=== PATIENT | male | born 1975 | race Caucasian/White ===

== ENCOUNTER 2016-09-30 05:30 | Emergency (ER) | payer BC ==
[2016-09-30 05:37] VITALS: BMI 25.8
[2016-09-30] MEDS ORDERED: ACETAMINOPHEN 325 MG TABLET (FP) ONE (05:37)
[2016-09-30] MEDS ORDERED: ALBUTEROL SO4 2.5/IPRATROPIUM 0.5 INH SOL 3 ML VIAL.NEB. NEB ONE (05:38)
[2016-09-30] MEDS ORDERED: PSEUDOEPHEDRINE HCL 30 MG TABLET PO STA (05:58)
[2016-09-30] MEDS ORDERED: AMOX TR/POT CLAV 875MG/125MG TABLETS (FP) PO STA (05:58)
[2016-09-30] MEDS ORDERED: PSEUDOEPHEDRINE HCL 60 MG TABLET ONE (05:58)
--- NOTE | 2016-09-30 06:00 | PDOC ---
History of Present Illness - General History Source: Patient Exam Limitations: No Limitations - History of Present Illness Initial Comments: 09/30/16 06:02 Patient is a 41 year old male with a significant past medical history of asthma who presents to the ED with cough and nasal congestion. Patient notes that for a week time he had aches and pains, sore throat, cough, generalized malaise. He notes that the cough is occasionally productive but not completely. He states that his pump provides him with minimal relief. He denies sick contact. <Madison Gibson - Last Filed: 09/30/16 06:07> - General History Source: Patient <Jose Johnson - Last Filed: 09/30/16 19:51> - General Chief Complaint: Respiratory Stated Complaint: COUGHING,PAIN Time Seen by Provider: 09/30/16 05:58 Past History <Madison Gibson - Last Filed: 09/30/16 06:07> - Past Medical History Asthma: Yes (childhood) HTN: Yes (no medication) - Immunization History Immunization Up to Date: Yes - Psycho/Social/Smoking Cessation Hx Anxiety: No Suicidal Ideation: No Smoking History: Never smoked Have you smoked in the past 12 months: No If you are a former smoker, when did you quit?: 10yrs ago Information on smoking cessation initiated: No Hx Alcohol Use: No Drug/Substance Use Hx: No Substance Use Type: None Hx Substance Use Treatment: No <Jose Johnson - Last Filed: 09/30/16 19:51> - Past Medical History Allergies/Adverse Reactions: Allergies Allergy/AdvReac Type Severity Reaction Status Date / Time No Known Allergies Allergy Verified 09/30/16 05:32 Home Medications: Ambulatory Orders Albuterol Sulfate Inhaler - [Ventolin Hfa Inhaler -] 1 - 2 inh PO Q4H PRN Amox-Tr/K Cl [Augmentin - 875Mg Tablet] 1 tab PO BID #20 tablet 09/30/16 Review of Systems - Review of Systems Able to Perform ROS?: Yes Comments:: 09/30/16 06:02 CONSTITUTIONAL: Absent: fever, no chills, no fatigue EYES: Absent: visual changes ENT: Present: nasal congestion Absent: ear pain, no sore throat CARDIOVASCULAR: Absent: chest pain, no palpitations RESPIRATORY: Present: cough Absent: no SOB GI: Absent: abdominal pain, no nausea, no vomiting, no constipation, no diarrhea GENITOURINARY: Absent: dysuria, no frequency, no hematuria MUSCULOSKELETAL: Absent: back pain, no arthralgia, no myalgia SKIN: Absent: rash <Madison Gibson - Last Filed: 09/30/16 06:07> *Physical Exam - Vital Signs Last Vital Signs Temp Pulse Resp BP Pulse Ox 101.8 F H 110 H 18 142/87 94 L 09/30/16 05:32 09/30/16 05:32 09/30/16 05:32 09/30/16 05:32 09/30/16 05:32 - Physical Exam Comments: 09/30/16 06:02 GENERAL: Well-appearing, well-nourished. No apparent distress. HEENT: +nasal congestion, +oropharynx clean no erythema no exudates. Normocephalic, atraumatic. PERRL, EOM intact. CARDIOVASCULAR: 4 +Tachycardic. Normal S1, S2. No murmurs, rubs, or gallops. Distal pulses are 2+ and symmetric. PULMONARY: Clear to auscultation bilaterally. No wheezing, rales or rhonchi. ABDOMEN: Soft, non-distended, non-tender. EXTREMITIES: Normal ROM in all four extremities. No gross deformities. SKIN: Warm, dry. No rash NEUROLOGICAL: No focal neurological deficits. <Madison Gibson - Last Filed: 09/30/16 06:07> - Vital Signs Last Vital Signs Temp Pulse Resp BP Pulse Ox 101.8 F H 110 H 18 142/87 94 L 09/30/16 05:32 09/30/16 05:32 09/30/16 05:32 09/30/16 05:32 09/30/16 05:32 <Jose Johnson - Last Filed: 09/30/16 19:51> ED Treatment Course - Medications Given in the ED: ED Medications Discontinued Medications Generic Name Dose Route Start Last Admin Trade Name Freq PRN Reason Stop Dose Admin Pseudoephedrine HCl 60 mg 09/30/16 05:58 09/30/16 06:01 Sudafed - PO 09/30/16 05:59 60 mg Q4H STA Administration <Madison Gibson - Last Filed: 09/30/16 06:07> - LABORATORY CBC & Chemistry Diagram: 09/30/16 07:20 09/30/16 06:41 <Jose Johnson - Last Filed: 09/30/16 19:51> Medical Decision Making - Medical Decision Making 09/30/16 19:49 Dr. Johnson: The scribe's documentation has been prepared under my direction and personally reviewed by me in its entirery. I confirm that the note above accurately reflects all work, treatment, procedures, and medical decision making performed by me. Patient found to have a maxillary sinusitis, and influenza A. Patient treated and released <Jose Johnson - Last Filed: 09/30/16 19:51> *DC/Admit/Observation/Transfer - Attestations Scribe Attestion: 09/30/16 06:04 Documentation prepared by DEAN Saba, acting as biomedical instrument technician for Jose Johnson DO. <Madison Gibson - Last Filed: 09/30/16 06:07> - Discharge Dispostion Admit: No <Jsoe Johnson - Last Filed: 09/30/16 19:51> Diagnosis at time of Disposition: Influenza A, Maxillary sinusitis, acute - Discharge Dispostion Disposition: HOME Condition at time of disposition: Improved - Prescriptions Prescriptions: Amox-Tr/K Cl [Augmentin - 875Mg Tablet] 1 tab PO BID #20 tablet - Referrals Referrals: Tavo Valentin MD [Primary Care Provider] - Call tomorrow - Patient Instructions Printed Discharge Instructions: Sinusitis, Influenza, DI for Sinusitis Additional Instructions: Rest, Tylenol or Motrin for discomfort, increase fluid intake For the fsjxlolml-Rzwecbipj-dvm pill twice a day-you received your first dose this morning Followup with your primary care physician in 24-48 hours Return immediately if you worsen in any way Take your medications as directed Take a yogurt or probiotic pill daily to prevent antibiotic associated diarrhea - Post Discharge Activity Work/School Note: Back to Work, Parent(s) Back to Work Note
[2016-09-30] MEDS ORDERED: SODIUM CHLORIDE 1,000 ML IV STA (06:41)
[2016-09-30] MEDS ORDERED: IBUPROFEN 800 MG/8 ML IJ IVPB ONE (06:42)
[2016-09-30 07:42] LABS: BASOPHIL 0.4 % (0-2.0); EOSINOPHIL 1.9 % (0-4.5); MCH 29.7 pg (25.7-33.7); MCHC 34.3 g/dl (32.0-35.9); MEAN CELL VOLUME 86.4 fl (80-96); MEAN PLT VOLUME 9.3 fl (7.5-11.1); NEUTROPHILS 74.2 % (42.8-82.8); PLATELET COUNT 199 K/MM3 (134-434); RDW 11.9 % (11.9-15.9); WHITE BLOOD COUNT 6.7 K/mm3 (4.0-10.0)
--- NOTE | 2016-09-30 07:49 | PDOC ---
*Physical Exam - Vital Signs Last Vital Signs Temp Pulse Resp BP Pulse Ox 102.6 F H 110 H 18 142/87 94 L 09/30/16 06:40 09/30/16 05:32 09/30/16 05:32 09/30/16 05:32 09/30/16 05:32 - Physical Exam Comments: 09/30/16 07:48 SIGN IN Sign-out received from outgoing Emergency Physician Pt interviewed and examined Ancillary studies reviewed Patient is a 41 year old male with a significant past medical history of asthma who presents to the ED with cough and nasal congestion. Patient notes that for a week time he had aches and pains, sore throat, cough, generalized malaise. He notes that the cough is occasionally productive but not completely. He states that his pump provides him with minimal relief. He denies sick contact. After Augmentin, Sudafed,, Tylenol, and neb, patient's temperature went from 101 -102.6 At this point, he was put in for a chest x-ray, labwork, and flu swab, and reevaluation 09/30/16 08:28 Laboratory Results - last 24 hr 09/30/16 09/30/16 09/30/16 06:41 07:20 07:20 WBC 6.7 RBC 4.76 Hgb 14.1 D Hct 41.2 MCV 86.4 MCHC 34.3 RDW 11.9 Plt Count 199 D MPV 9.3 Neutrophils % 74.2 Lymphocytes % 11.3 D Monocytes % 12.2 H Eosinophils % 1.9 Basophils % 0.4 INR 1.32 H Sodium 138 Potassium 4.2 Chloride 102 Carbon Dioxide 28 Anion Gap 8 BUN 14 Creatinine 0.9 D Creat Clearance w eGFR > 60 Random Glucose 141 H D Calcium 8.6 Total Bilirubin 0.4 AST 32 ALT 50 Alkaline Phosphatase 93 Total Protein 7.3 Albumin 3.9 Chest x-ray PA and lateral-NAD CT scan of the head without-there is fluid layering in both maxillary sinuses consistent with acute maxillary sinusitis No acute changes in the brain are seen Pansinusitis is not seen 09/30/16 09:00 To my exam Patient is alert, and feeling better after meds There is some tenderness in the maxillary sinuses bilaterally Influenza A positive Patient has been symptomatic for almost a week, too late for Tamiflu Impression-influenza A, acute maxillary sinusitis 09/30/16 10:05 Vital Signs - 24 hr 09/30/16 09/30/16 09/30/16 05:32 06:40 09:30 Temperature 101.8 F H 102.6 F H 98.5 F Pulse Rate 110 H Pulse Rate [ 85 Right] Respiratory 18 18 Rate Blood Pressure 142/87 Blood Pressure 122/73 [Right Arm] O2 Sat by Pulse 94 L 96 Oximetry (%) Repeat vital signs improved Will discharge with Augmentin-patient had his first dose here Impression-influenza A, acute maxillary sinusitis ED Treatment Course - LABORATORY CBC & Chemistry Diagram: 09/30/16 07:20 09/30/16 06:41 - ADDITIONAL ORDERS Additional order review: 09/30/16 07:20 RBC 4.76 MCV 86.4 MCHC 34.3 RDW 11.9 MPV 9.3 Neutrophils % 74.2 Lymphocytes % 11.3 D Monocytes % 12.2 H Eosinophils % 1.9 Basophils % 0.4 - Medications Given in the ED: ED Medications Discontinued Medications Generic Name Dose Route Start Last Admin Trade Name Cl PRN Reason Stop Dose Admin Amoxicillin/Clavulanate Potassium 1 tab 09/30/16 05:58 09/30/16 06:06 Augmentin - 875mg Tablet PO 09/30/16 05:59 1 tab ONCE STA Administration Sodium Chloride 1,000 mls @ 1,000 mls/hr 09/30/16 06:41 09/30/16 07:21 Normal Saline - IV 09/30/16 07:40 1,000 mls/hr ASDIR STA Administration Pseudoephedrine HCl 60 mg 09/30/16 05:58 09/30/16 06:01 Sudafed - PO 09/30/16 05:59 60 mg Q4H STA Administration *DC/Admit/Observation/Transfer Diagnosis at time of Disposition: Influenza A, Maxillary sinusitis, acute - Discharge Dispostion Disposition: HOME Condition at time of disposition: Improved - Prescriptions Prescriptions: Amox-Tr/K Cl [Augmentin - 875Mg Tablet] 1 tab PO BID #20 tablet - Referrals Referrals: Tavo Valentin MD [Primary Care Provider] - Call tomorrow - Patient Instructions Printed Discharge Instructions: Influenza, Sinusitis, DI for Sinusitis Additional Instructions: Rest, Tylenol or Motrin for discomfort, increase fluid intake For the eiveyljst-Vsyxiefdr-ydx pill twice a day-you received your first dose this morning Followup with your primary care physician in 24-48 hours Return immediately if you worsen in any way Take your medications as directed Take a yogurt or probiotic pill daily to prevent antibiotic associated diarrhea - Post Discharge Activity Work/School Note: Back to Work, Parent(s) Back to Work Note
[2016-09-30 08:00] LABS: INR 1.32 (0.82-1.09); PROTHROMBIN TIME (PATIENT) 14.6 SEC (9.98-11.88)
[2016-09-30 08:14] LABS: ALBUMIN 3.9 g/dl (3.4-5.0); ALK PHOS 93 U/L (45-117); ANION GAP 8 (8-16); BILIRUBIN,TOTAL 0.4 mg/dL (0.2-1.0); CALCIUM 8.6 mg/dL (8.5-10.1); CO2 28 mmol/L (21-32); CREATININE 0.9 mg/dL (0.7-1.3); GLUCOSE,RANDOM 141 mg/dL (74-106); SGOT/AST 32 U/L (15-37); SGPT/ALT 50 U/L (12-78); TOT PROT 7.3 g/dl (6.4-8.2)
[2016-09-30 10:03] VITALS: BP 122/73; PULSE 85; TEMP 98.5
== END 2016-09-30 10:15 | disposition home or self-care (01) ==
LOC: JER 05:30
PROC: 3E033NZ Introduction of Analgesics, Hypnotics, Sedatives into Peripheral Vein, Percutaneous Approach (ICD-10-PCS; principal; 2016-09-30)
DX: J09.X2 Influenza due to identified novel influenza A virus with other respiratory manifestations (principal); J01.00 Acute maxillary sinusitis, unspecified
CPT/HCPCS: 36415; 70450-TC; 71020-TC; 80053; 85025; 85610; 87040; 87804; 99282-25

== ENCOUNTER 2019-01-22 12:01 | Emergency (ER) | payer OTHER, BC ==
[2019-01-22 12:07] VITALS: BP 150/90; PULSE 99; TEMP 98.3; BMI 28.5
--- NOTE | 2019-01-22 12:14 | PDOC ---
History of Present Illness - General Chief Complaint: Injury Stated Complaint: WORK INJURY Time Seen by Provider: 01/22/19 12:09 History Source: Patient Exam Limitations: Clinical Condition - History of Present Illness Initial Comments: 01/22/19 13:12 Patient with no significant past medical history present with complaint of pain to dorsal of right distal foot status post dropping a bag of ice on right foot while at work over an hour ago. Patient reported increased pain to right foot with ambulation. Patient reported mild numbness sensation to right distal foot. Denies any ankle or leg pain or swelling. Timing/Duration: 1-3 hours Past History - Past Medical History Allergies/Adverse Reactions: Allergies Allergy/AdvReac Type Severity Reaction Status Date / Time No Known Allergies Allergy Verified 01/22/19 12:08 Home Medications: Ambulatory Orders Ibuprofen 800 mg PO Q8H PRN #20 tablet 01/22/19 Asthma: Yes (childhood) COPD: No HTN: Yes (no medication) - Immunization History Immunization Up to Date: Yes - Suicide/Smoking/Psychosocial Hx Smoking History: Never smoked Have you smoked in the past 12 months: No If you are a former smoker, when did you quit?: 10yrs ago Hx Alcohol Use: No Drug/Substance Use Hx: No Substance Use Type: None Hx Substance Use Treatment: No Review of Systems - Review of Systems Able to Perform ROS?: Yes Is the patient limited Nigerian proficient: No Constitutional: No: Malaise, Weakness HEENTM: No: Symptoms Reported Respiratory: No: Symptoms reported Cardiac (ROS): No: Symptoms Reported Musculoskeletal: Yes: Symptoms Reported, See HPI, Joint Swelling (right foot), Muscle Pain (dorsum of right foot). No: Muscle Weakness Neurological: Yes: Numbness (right foot). No: Tingling All Other Systems: Reviewed and Negative *Physical Exam - Vital Signs Last Vital Signs Temp Pulse Resp BP Pulse Ox 98.3 F 99 H 18 150/90 98 01/22/19 12:06 01/22/19 12:06 01/22/19 12:06 01/22/19 12:01/22/19 12:06 - Physical Exam Comments: 01/22/19 12:13 GENERAL: Well developed, well nourished. Awake and alert in mild acute distress. CARDIOVASCULAR: Regular rate and rhythm. No murmurs, rubs, or gallops. PULMONARY: No evidence of respiratory distress. MUSCULOSKELETAL : mild tenderness over the dorsum of right foot for midfoot to distal aspect of right foot. No visible swelling or deformity to foot. No tenderness to ankle or right leg. EXTREMITIES: No cyanosis. No clubbing. No edema. No calf tenderness. SKIN: Warm and dry. Normal capillary refill. No bruising or ecchymosis NEUROLOGICAL: Alert, awake, appropriate. No motor deficits in the lower extremities. Gait is normal with mild limp on right foot due to pain PSYCHIATRIC: Cooperative. Good eye contact. Appropriate mood and affect. General Appearance: Yes: Nourished, Appropriately Dressed, Moderate Distress ED Treatment Course - RADIOLOGY Radiology Studies Ordered: Category Date Time Status FOOT-RIGHT [RAD] Stat Radiology 01/22/19 12:10 Ordered Medical Decision Making - Medical Decision Making 01/22/19 13:13 Patient with no significant past medical history present with complaint of pain to dorsal of right distal foot status post dropping a bag of ice on right foot while at work over an hour ago. Patient reported increased pain to right foot with ambulation. Patient reported mild numbness sensation to right distal foot. Denies any ankle or leg pain or swelling. Exam significant for moderate tenderness to dorsal of right foot from midfoot to distal foot and phalanges. No swelling to foot or ankle. No visible deformity to foot. No tenderness to ankle right leg. Symptoms likely foot contusion. X-ray of right foot shows no acute fracture or pathology. Toradol 10 mg IM ordered for pain. Patient be discharged home with postop boots and crutches to help keep weight of right foot for the next 24 hours. Right foot wrapped with Rhett bandage. Patient is stable for discharge *DC/Admit/Observation/Transfer Diagnosis at time of Disposition: Right foot pain, Contusion of right foot, initial encounter - Discharge Dispostion Condition at time of disposition: Stable Decision to Admit order: No - Prescriptions Prescriptions: Ibuprofen 800 mg PO Q8H PRN #20 tablet PRN Reason: pain - Referrals Referrals: Tavo Valentin MD [Primary Care Provider] - - Patient Instructions Printed Discharge Instructions: Contusion Additional Instructions: Your x-ray shows no acute fracture or dislocation. The symptoms likely foot contusion. Take prescribed medication as needed for pain. Apply cold compresses to foot and switch to warm compresses tomorrow as needed for swelling and pain. Use provided crutches to keep weight off right foot for the next 24 hours. Ambulate as tolerated after 24 hours. - Post Discharge Activity Forms/Work/School Notes: Back to Work
[2019-01-22] MEDS ORDERED: KETOROLAC TROMETHAMINE 30 MG/1 ML VIAL IM ONE (13:06)
[2019-01-22] MEDS ORDERED: KETOROLAC TROMETHAMINE 30 MG/1 ML VIAL ONE (13:17)
== END 2019-01-22 13:26 | disposition home or self-care (01) ==
LOC: JERFT 12:01
PROC: 3E0233Z Introduction of Anti-inflammatory into Muscle, Percutaneous Approach (ICD-10-PCS; principal; 2019-01-22)
DX: S90.31XA Contusion of right foot, initial encounter (principal); W22.8XXA Striking against or struck by other objects, initial encounter; Y93.89 Activity, other specified; Y92.512 Supermarket, store or market as the place of occurrence of the external cause; Y99.0 Civilian activity done for income or pay
CPT/HCPCS: 73630-TC-RT-FY; 99281-25

== ENCOUNTER 2020-05-16 03:29 | Emergency (ER) | payer BC ==
[2020-05-16 03:56] VITALS: BP 132/93; PULSE 75; TEMP 98.3; BMI 27.1
--- NOTE | 2020-05-16 03:56 | PDOC ---
Medical Decision Making - Medical Decision Making 05/16/20 03:56 Patient seen by the advanced practice provider under my supervision. Ancillary testing reviewed as necessary. I agree with plan as outlined by the advanced practice provider. Discharge - Discharge Information Problems reviewed: Yes Clinical Impression/Diagnosis: Trapezius muscle strain Qualifiers: Encounter type: initial encounter Laterality: left Qualified Code(s): S46.812A - Strain of other muscles, fascia and tendons at shoulder and upper arm level, left arm, initial encounter Condition: Fair Disposition: HOME - Additional Discharge Information Prescriptions: Cyclobenzaprine HCl [Flexeril -] 10 mg PO TID PRN #14 tablet PRN Reason: Muscle Spasms Ibuprofen 600 mg PO QID PRN #20 tablet PRN Reason: Pain - Follow up/Referral Referrals: Keesha Meadows MD [Primary Care Provider] - - Patient Discharge Instructions Patient Printed Discharge Instructions: Muscle Strain Additional Instructions: Do light stretches Apply ice to the area for the first 24 hours. Then alternate with ice and heat after. Take ibuprofen every 6 hours as needed for pain. Take Flexeril as prescribed for muscle spasm. Flexeril can make you sleepy, do not drive or operate heavy machinery after taking the medication. Follow-up with an orthopedic doctor if symptoms persist. A referral was given to you today. Return to the emergency room for any worsening symptoms. - Post Discharge Activity Work/Back to School Note: Back to Work
--- OUTSIDE RECORDS SUMMARY | 2020-05-16 03:56 | XMS ---
:1975 Author Organization [facility] Support Name Relationship Address Phone [employer] [place] [address] ROSIE KIRAN [address] [place] [address] Re-disclosure Warning The records that you are about to access may contain information from federally- assisted alcohol or drug abuse programs. If such information is present, then the following federally mandated warning applies: This information has been disclosed to you from records protected by federal confidentiality rules (42 CFR part 2). The federal rules prohibit you from making any further disclosure of this information unless further disclosure is expressly permitted by the written consent of the person to whom it pertains or as otherwise permitted by 42 CFR part 2. A general authorization for the release of medical or other information is NOT sufficient for this purpose. The Federal rules restrict any use of the information to criminally investigate or prosecute any alcohol or drug abuse patient.The records that you are about to access may contain highly sensitive health information, the redisclosure of which is protected by Article 27-F of the [facility] Public Health law. If you continue you may haveaccess to information: Regarding HIV / AIDS; Provided by facilities licensed or operated by the [facility] Office of Mental Health; or Provided by the [facility] Office for People With Developmental Disabilities. If such information is present, then the following [facility] mandated warning applies: This information has been disclosed to you from confidential records which are protected by state law. State law prohibits you from making any further disclosure of this information without the specific written consent of the person to whom it pertains, or as otherwise permitted by law. Any unauthorized further disclosure in violation of state law may result in a fine or mcc sentence or both. A general authorization for the release of medical or other information is NOT sufficient authorization for further disclosure. Insurance Providers Payer name Policy type Policy ID Covered Covered libertarian's Policy P nilson / Coverage libertarian ID relationship to [employer] Inf ormation type figueredo BC OUT OF [id number] [facility] SELF PAY INSURANCE BC OUT OF [id number] STATE PENDING WC/NF [id number] ONLY
[2020-05-16] MEDS ORDERED: diazePAM 5 MG TABLET PO ONE (04:17)
[2020-05-16] MEDS ORDERED: KETOROLAC TROMETHAMINE 30 MG/1 ML VIAL IM ONE (04:17)
--- NOTE | 2020-05-16 04:17 | PDOC ---
History of Present Illness - General Chief Complaint: Head/Neck problem Stated Complaint: NECK PAIN Time Seen by Provider: 05/16/20 03:51 History Source: Patient - History of Present Illness Initial Comments: 05/16/20 04:32 45-year-old male complaining of left-sided neck and shoulder pain for the last 3 days. Patient reports pain is worse with movement. Patient took doses of Tylenol with no significant improvement. 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 Denies trauma to the area denies chest pain, nausea, vomiting, diaphoresis Past History - Medical History Allergies/Adverse Reactions: Allergies Allergy/AdvReac Type Severity Reaction Status Date / Time No Known Allergies Allergy Verified 05/16/20 03:56 Home Medications: Ambulatory Orders Ibuprofen 800 mg PO Q8H PRN #20 tablet 01/22/19 Cyclobenzaprine HCl [Flexeril -] 10 mg PO TID PRN #14 tablet 05/16/20 Ibuprofen 600 mg PO QID PRN #20 tablet 05/16/20 Asthma: Yes (childhood) COPD: No HTN: Yes (no medication) - Immunization History Immunization Up to Date: Yes - Psycho-Social/Smoking History Smoking History: Never smoked Have you smoked in the past 12 months: No If you are a former smoker, when did you quit?: 10yrs ago Information on smoking cessation initiated: No - Substance Abuse Hx (Audit-C & DAST Scrn) How often the patient has a drink containing alcohol: Monthly or less Number of drinks the patient has on a typical day: 1 or 2 How often the patient has six or more drinks on one occasion: Never Score: In Men: 4 or > Positive; In Women: 3 or > Positive: 1 Screen Result (Pos requires Nsg. Audit-10AR): Negative In the last yr the pt used illegal drug/Rx for NonMed reason: No Score: Yes response is considered Positive: 0 Screen Result (Positive result requires Nsg. DAST-10): Negative *Physical Exam - Vital Signs Last Vital Signs Temp Pulse Resp BP Pulse Ox 98.3 F 75 18 132/93 98 05/16/20 03:40 05/16/20 03:40 05/16/20 03:40 05/16/20 03:40 05/16/20 03:40 - Physical Exam General Appearance: Yes: Appropriately Dressed Neck: positive: Tender lateral ( trap muscle spasm), Other Respiratory/Chest: positive: Lungs Clear, Normal Breath Sounds Cardiovascular: positive: Regular Rhythm, Regular Rate Musculoskeletal: positive: Decreased Range of Motion, Muscle Spasm. negative: Vertebral Tenderness Extremity: positive: Normal Capillary Refill, Normal Inspection, Normal Range of Motion Integumentary: positive: Normal Color, Dry, Warm Neurologic: positive: Fully Oriented, Alert, Normal Mood/Affect Heart Score/ECG Review - ECG Intrepretation Rhythm: Regular Rhythm Comment:: 05/16/20 04:35 NSR Medical Decision Making - Medical Decision Making Trapezius muscle strain P: valium toradol 05/16/20 05:25 patient is feeling better will d/c home 05/16/20 06:16 Discharge - Discharge Information Problems reviewed: Yes Clinical Impression/Diagnosis: Trapezius muscle strain Qualifiers: Encounter type: initial encounter Laterality: left Qualified Code(s): S46.812A - Strain of other muscles, fascia and tendons at shoulder and upper arm level, left arm, initial encounter Condition: Fair Disposition: HOME - Additional Discharge Information Prescriptions: Cyclobenzaprine HCl [Flexeril -] 10 mg PO TID PRN #14 tablet PRN Reason: Muscle Spasms Ibuprofen 600 mg PO QID PRN #20 tablet PRN Reason: Pain - Follow up/Referral Referrals: Keesha Meadows MD [Primary Care Provider] - - Patient Discharge Instructions Patient Printed Discharge Instructions: Muscle Strain Additional Instructions: Do light stretches Apply ice to the area for the first 24 hours. Then alternate with ice and heat after. Take ibuprofen every 6 hours as needed for pain. Take Flexeril as prescribed for muscle spasm. Flexeril can make you sleepy, do not drive or operate heavy machinery after taking the medication. Follow-up with an orthopedic doctor if symptoms persist. A referral was given to you today. Return to the emergency room for any worsening symptoms. - Post Discharge Activity Work/Back to School Note: Back to Work
[2020-05-16] MEDS ORDERED: diazePAM 5 MG TABLET ONE (04:25)
[2020-05-16] MEDS ORDERED: KETOROLAC TROMETHAMINE 30 MG/1 ML VIAL ONE (04:26)
--- NOTE | 2020-05-16 12:50 | EKG ---
Test Reason : Blood Pressure : / mmHG Vent. Rate : 077 BPM Atrial Rate : 077 BPM P-R Int : 142 ms QRS Dur : 094 ms QT Int : 394 ms P-R-T Axes : 055 079 070 degrees QTc Int : 445 ms NORMAL SINUS RHYTHM POSTERIOR INFARCT ABNORMAL ECG Confirmed by MD SUMMER, HUGO ([id number]) on 05/16/2020 12:49:54 PM Referred By: Confirmed By:HUGO WHEELER MD
== END 2020-05-16 06:00 | disposition home or self-care (01) ==
LOC: JER 03:29
PROC: 3E0234Z Introduction of Serum, Toxoid and Vaccine into Muscle, Percutaneous Approach (ICD-10-PCS; principal; 2020-05-16)
DX: S46.812A Strain of other muscles, fascia and tendons at shoulder and upper arm level, left arm, initial encounter (principal)
CPT/HCPCS: 93005; 93010; 99284-25

== ENCOUNTER 2022-10-05 03:36 | Emergency (ER) | payer SELFPAY ==
[2022-10-05 03:49] VITALS: BP 135/86; PULSE 81; RESP 17; TEMP 97.6; BMI 24.4
== END 2022-10-05 05:49 | disposition home or self-care (01) ==
LOC: JER 03:36
DX: F32.A Depression, unspecified (principal); R53.83 Other fatigue
CPT/HCPCS: 82962; 99283-25

== ENCOUNTER 2023-06-12 07:58 | Emergency (ER) | payer BC ==
[2023-06-12 08:36] VITALS: BP 125/82; PULSE 70; RESP 18; TEMP 97.9; BMI 26.4
[2023-06-12] MEDS ORDERED: ACETAMINOPHEN 500 MG TABLET (FP) PO ONE (08:45)
[2023-06-12] MEDS ORDERED: KETOROLAC TROMETHAMINE 30 MG/1 ML VIAL IM ONE (08:45)
[2023-06-12] MEDS ORDERED: LIDOCAINE 5% TOPICAL PATCH TP ONE (08:46)
[2023-06-12] MEDS ORDERED: ACETAMINOPHEN 325 MG TABLET (FP) ONE (09:02)
[2023-06-12] MEDS ORDERED: LIDOCAINE 4% PATCH TP ONE (09:02)
[2023-06-12] MEDS ORDERED: KETOROLAC TROMETHAMINE 30 MG/1 ML VIAL ONE (09:02)
[2023-06-12] MEDS ORDERED: LIDOCAINE PATCH REMOVAL MC ONE (22:00)
== END 2023-06-12 09:10 | disposition home or self-care (01) ==
LOC: JER 07:58
PROC: 3E0233Z Introduction of Anti-inflammatory into Muscle, Percutaneous Approach (ICD-10-PCS; principal; 2023-06-12)
DX: M54.2 Cervicalgia (principal); R51.9 Headache, unspecified; M54.6 Pain in thoracic spine
CPT/HCPCS: 99284-25

== ENCOUNTER 2023-11-02 10:25 | Observation (INO) | payer BC ==
[2023-11-02 10:43] VITALS: BMI 26.7
[2023-11-02 11:36] LABS: EOS % 3.6 % (0-4.5); HEMATOCRIT 46.1 % (35.4-49); HEMOGLOBIN 15.5 GM/dL (11.7-16.9); MCHC 33.7 g/dl (32.0-35.9); MEAN CELL VOLUME 86.2 fl (80-96); MEAN PLT VOLUME 9.5 fl (7.5-11.1); MONO % 10.8 % (3.8-10.2); NEUT % 55.6 % (42.8-82.8); PLATELET COUNT 281 10^3/uL (134-434); RBC 5.35 M/mm3 (4.00-5.60); RDW 12.8 % (11.9-15.9); WHITE BLOOD COUNT 5.9 K/mm3 (4.0-10.0)
[2023-11-02 11:42] LABS: INR 1.11 (0.83-1.09); PROTHROMBIN TIME (PATIENT) 12.9 SEC (9.7-13.0)
[2023-11-02 11:45] LABS: ACTIVATED PTT 30.1 SECONDS (25.2-36.5)
[2023-11-02 11:58] LABS: POTASSIUM 4.6 mmol/L (3.5-5.1)
[2023-11-02 12:00] LABS: CALCIUM 9.4 mg/dL (8.5-10.1)
[2023-11-02 12:01] LABS: ALBUMIN 4.1 g/dl (3.4-5.0); BLOOD UREA NITROGEN 17.6 mg/dL (7-18); MAGNESIUM 2.2 mg/dL (1.8-2.4)
[2023-11-02 12:04] LABS: CREATININE 0.9 mg/dL (0.55-1.3)
[2023-11-02 12:06] LABS: BILIRUBIN,TOTAL 0.5 mg/dL (0.2-1); TOT PROT 7.6 g/dl (6.4-8.2)
[2023-11-02 16:16] LABS: CHOLESTEROL 152 mg/dL (50-200)
[2023-11-02 16:17] LABS: LDL CHOLESTEROL (ONLY SJRH) 96 mg/dL (5-100)
[2023-11-02 16:19] LABS: HDL CHOLESTEROL 42 mg/dL (40-60)
[2023-11-02] MEDS: CARVEDILOL 3.125 MG TABLET (FP) PO SCH (22:30)
[2023-11-02] MEDS: APIXABAN 5 MG TABLET PO SCH (22:30)
[2023-11-03 07:45] LABS: POTASSIUM 3.9 mmol/L (3.5-5.1)
[2023-11-03 07:50] LABS: BASO % 0.9 % (0-2.0); EOS % 4.5 % (0-4.5); HEMOGLOBIN 14.9 GM/dL (11.7-16.9); LYMPH % 24.5 % (8-40); MCH 29.5 pg (25.7-33.7); MCHC 34.5 g/dl (32.0-35.9); MEAN CELL VOLUME 85.4 fl (80-96); MEAN PLT VOLUME 9.6 fl (7.5-11.1); NEUT % 59.1 % (42.8-82.8); PLATELET COUNT 245 10^3/uL (134-434); RBC 5.04 M/mm3 (4.00-5.60); RDW 12.7 % (11.9-15.9); WHITE BLOOD COUNT 6.1 K/mm3 (4.0-10.0)
[2023-11-03 07:55] LABS: ALBUMIN 3.7 g/dl (3.4-5.0); CALCIUM 8.6 mg/dL (8.5-10.1)
[2023-11-03 07:56] LABS: BLOOD UREA NITROGEN 20.5 mg/dL (7-18); MAGNESIUM 2.4 mg/dL (1.8-2.4)
[2023-11-03 07:59] LABS: CREATININE 0.7 mg/dL (0.55-1.3)
[2023-11-03 08:00] LABS: BILIRUBIN,TOTAL 0.8 mg/dL (0.2-1); TOT PROT 6.8 g/dl (6.4-8.2)
[2023-11-03] MEDS ORDERED: REGADENOSON 0.4 MG/5 ML PRE-FILLED SYRINGE IVPUSH ONE (09:50)
[2023-11-03] MEDS ORDERED: ASPIRIN 81 MG CHEWABLE TABLETS PO SCH (10:00)
[2023-11-03] MEDS: REGADENOSON 0.4 MG/5 ML PRE-FILLED SYRINGE IVPUSH ONE (12:00)
[2023-11-03 14:37] VITALS: RESP 18
[2023-11-03 15:25] VITALS: BP 123/87; PULSE 72; TEMP 97.7
== END 2023-11-03 19:43 | disposition home or self-care (01) ==
LOC: JER 10:25 → JERBED 12:23 → J4S 21:43
PROVIDERS: ADMIT Family Medicine; ATTEND Family Medicine
PROC: 3E033GC Introduction of Other Therapeutic Substance into Peripheral Vein, Percutaneous Approach (ICD-10-PCS; principal; 2023-11-02)
DX: I48.91 Unspecified atrial fibrillation (principal); I10 Essential (primary) hypertension; F32.A Depression, unspecified; Z87.891 Personal history of nicotine dependence
CPT/HCPCS: 36415; 71046-TC-FY; 78452-TC; 80053; 80061; 83735; 84443; 84484; 85025; 85610; 85730; 93005; 93010; 93017; 93306-TC; 99285-25; A9502; G0378; J2785

== ENCOUNTER 2024-02-25 12:16 | Observation (INO) | payer BC ==
[2024-02-25 12:34] VITALS: BMI 33.4
[2024-02-25] MEDS ORDERED: ACETAMINOPHEN INJECTION 100 ML IVPB ONE (13:35)
[2024-02-25] MEDS: ACETAMINOPHEN 1000 MG/100 ML BAG IVPB ONE (13:38)
[2024-02-25 13:39] LABS: BASO % 0.4 % (0-2.0); HEMATOCRIT 41.1 % (35.4-49); HEMOGLOBIN 14.1 GM/dL (11.7-16.9); LYMPH % 27.2 % (8-40); MCH 29.2 pg (25.7-33.7); MCHC 34.4 g/dl (32.0-35.9); MEAN CELL VOLUME 84.9 fl (80-96); MEAN PLT VOLUME 8.7 fl (7.5-11.1); MONO % 11.2 % (3.8-10.2); NEUT % 56.2 % (42.8-82.8); PLATELET COUNT 245 10^3/uL (134-434); RBC 4.84 M/mm3 (4.00-5.60); RDW 12.8 % (11.9-15.9); WHITE BLOOD COUNT 6.1 K/mm3 (4.0-10.0)
[2024-02-25 13:48] LABS: ACTIVATED PTT 39.7 SECONDS (25.2-36.5); INR 1.22 (0.83-1.09); PROTHROMBIN TIME (PATIENT) 13.9 SEC (9.7-13.0)
[2024-02-25 14:25] LABS: BLOOD UREA NITROGEN 22.2 mg/dL (7-18)
[2024-02-25 14:26] LABS: CALCIUM 9.2 mg/dL (8.5-10.1); CREATININE 0.9 mg/dL (0.55-1.3); POTASSIUM 4.3 mmol/L (3.5-5.1)
[2024-02-25 14:27] LABS: ALBUMIN 3.9 g/dl (3.4-5.0); BILIRUBIN,TOTAL 0.3 mg/dL (0.2-1); TOT PROT 7.3 g/dl (6.4-8.2)
[2024-02-25 20:09] LABS: HIV INTERPRETATION NEGATIVE (NEGATIVE)
[2024-02-25] MEDS ORDERED: ACETAMINOPHEN 325 MG TABLET (FP) PO PRN (20:30)
[2024-02-25] MEDS: CARVEDILOL 3.125 MG TABLET (FP) PO SCH (21:29)
[2024-02-25] MEDS: APIXABAN 5 MG TABLET PO SCH (21:29)
[2024-02-25] MEDS: COLCHICINE 0.6 MG TAB PO SCH (21:57)
[2024-02-26 08:51] LABS: BASO % 0.8 % (0-2.0); EOS % 3.9 % (0-4.5); HEMATOCRIT 40.8 % (35.4-49); HEMOGLOBIN 14.1 GM/dL (11.7-16.9); LYMPH % 25.5 % (8-40); MCH 29.5 pg (25.7-33.7); MCHC 34.6 g/dl (32.0-35.9); MEAN CELL VOLUME 85.2 fl (80-96); MEAN PLT VOLUME 9.5 fl (7.5-11.1); MONO % 10.4 % (3.8-10.2); NEUT % 59.4 % (42.8-82.8); PLATELET COUNT 238 10^3/uL (134-434); RBC 4.79 M/mm3 (4.00-5.60); RDW 12.5 % (11.9-15.9); WHITE BLOOD COUNT 6.3 K/mm3 (4.0-10.0)
[2024-02-26 09:08] LABS: POTASSIUM 4.5 mmol/L (3.5-5.1)
[2024-02-26 09:11] LABS: BLOOD UREA NITROGEN 18.5 mg/dL (7-18); CALCIUM 9.4 mg/dL (8.5-10.1)
[2024-02-26 09:18] LABS: CREATININE 0.7 mg/dL (0.55-1.3)
[2024-02-27 14:12] VITALS: BP 124/85; PULSE 70; RESP 18; TEMP 98.4
== END 2024-02-27 15:51 | disposition home or self-care (01) ==
LOC: JER 12:16 → JERBED 17:00 → J4S 19:21
PROVIDERS: ADMIT Internal Medicine; ATTEND Family Medicine
PROC: 3E033NZ Introduction of Analgesics, Hypnotics, Sedatives into Peripheral Vein, Percutaneous Approach (ICD-10-PCS; principal; 2024-02-25)
DX: G89.18 Other acute postprocedural pain (principal); I48.0 Paroxysmal atrial fibrillation; I10 Essential (primary) hypertension; R77.8 Other specified abnormalities of plasma proteins; R07.9 Chest pain, unspecified; Z87.891 Personal history of nicotine dependence; R10.32 Left lower quadrant pain; R79.89 Other specified abnormal findings of blood chemistry; R91.1 Solitary pulmonary nodule
CPT/HCPCS: 36415; 71275-TC; 74174-TC; 80048; 80053; 84484; 85025; 85610; 85730; 86803; 86850; 86900; 86901; 87081; 87389; 93005; 93010; 93306-TC; 96374; 99285-25; G0378; J0131; Q9967